=== PATIENT | female | born 1980 | race Caucasian/White ===

== ENCOUNTER → 2017-03-04 | Outpatient (CLI) | payer OTHER ==
[~2017-03-04] MED LIST: DOCU-30 PO; IBUP-1222 PO; OXYC-302 PO; PREN1TAB28 PO
== END | disposition home or self-care (01) ==
LOC: CFH 09:13
PROVIDERS: ATTEND Nurse Practitioner Primary Care
DX: R10.30 Lower abdominal pain, unspecified (principal); E55.9 Vitamin D deficiency, unspecified; F06.4 Anxiety disorder due to known physiological condition; K21.9 Gastro-esophageal reflux disease without esophagitis; I95.9 Hypotension, unspecified; E61.1 Iron deficiency
CPT/HCPCS: 76700